=== PATIENT | male | born 1940 | race Caucasian/White ===

== ENCOUNTER 2020-02-09 10:13 | Outpatient (CLI) | payer MEDICARE, SELFPAY ==
--- NOTE | ~2020-02-09 | CT_ITS ---
EXAMINATION: CT lung screening EXAM DATE: 02/09/2020 10:36 INDICATION: Personal history of nicotine dependence. TECHNIQUE: Spiral low dose CT of the chest without contrast. Axial, coronal and sagittal images were reviewed. The dose-length product (DLP) for this examination was 126.87 mGy-cm. The exposure was t ailored according to patient size (auto mA exposure control), and iterative reconstruction (ASIR) was used as additional dose reduction technique. Comparison is made to prior examination from 05/06/2018. FINDINGS: There is an azygos fissure. There is mild to moderate emphysema. Left upper lobe calcified granuloma. No suspicious pulmonary nodules. Tracheobronchial tree is patent. There is no mediasti nal, hilar or axillary lymphadenopathy. There are no pleural or pericardial effusions. There is n o pneumothorax. Heart normal in size. There is mild to moderate coronary arterial calcification, arterial sclerosis. Several small calcified gallstones. There is mild to moderate thoracic spondylos is without osteoblastic or osteolytic lesions identified. IMPRESSION: Lung-RADS category 1, negative (<1%chance of malignancy); recommend continued LDCT screen ing in 1 year. Reviewed, dictated and finalized at location B. IMPRESSION: Lung-RADS category 1, negative (<1%chance of malignancy); recommend continued LDCT screening in 1 year.
== END 2020-02-09 10:14 | disposition home or self-care (01) ==
PROVIDERS: PCP Family Medicine; Visit Provider Nurse Practitioner Family
DX: Z12.2 Encounter for screening for malignant neoplasm of respiratory organs (principal); Z87.891 Personal history of nicotine dependence
CPT/HCPCS: G0297

== ENCOUNTER 2021-03-18 08:59 | Outpatient (CLI) | payer MEDICARE, SELFPAY ==
--- NOTE | ~2021-03-18 | CT_ITS ---
EXAMINATION: CT lung screening DATE: 03/18/2021 09:19 INDICATION: Personal history of nicotine dependence TECHNIQUE: Computed tomography (CT) of the chest was performed without intravenous contrast. The dose -length product was 99.14 mGy-cm. Automated exposure control and iterative reconstruction technique w ere employed. COMPARISON: CT dated 02/09/2020 FINDINGS: Heart size is normal. No thoracic lymphadenopathy. There is atherosclerosis of the aorta an d coronary arteries. No significant pleural or pericardial effusion. There are gallstones. There is a 3 mm right upper lobe nodule new since prior study. Calcified granulomas in the left upper lobe. Sta ble pleural-based left upper lobe nodule measuring 5 mm, image 38. Stable 5 mm pleural-based nodule l eft upper lobe, image 44. No endobronchial lesions. There is an azygos fissure. There is mild emphyse ma. IMPRESSION: 1. Lung-RADS category 2: Benign appearance or behavior. Continue annual screening with noncontrast lo w-dose chest CT in 12 months. Reviewed, dictated and finalized at location A. IMPRESSION: 1. Lung-RADS category 2: Benign appearance or behavior. Continue annual screeni ng with noncontrast low-dose chest CT in 12 months.
== END 2021-03-18 09:00 | disposition home or self-care (01) ==
PROVIDERS: PCP Family Medicine; Visit Provider Nurse Practitioner Family
DX: Z87.891 Personal history of nicotine dependence (principal)
CPT/HCPCS: 71271

== ENCOUNTER 2022-03-20 09:16 | Outpatient (CLI) | payer MEDICARE, SELFPAY ==
--- NOTE | ~2022-03-20 | CT_ITS ---
EXAMINATION:CT diagnostic chest wo con DATE: 03/20/2022 09:38 INDICATION: Lung nodule. TECHNIQUE: Computed tomography (CT) of the chest was performed without intravenous contrast. Automate d exposure control and iterative reconstruction technique were employed. The dose-length product (DLP ) was 109.57 mGy-cm. COMPARISON: Chest CT 03/18/2021 FINDINGS: There is mild scarring at the lung apices. There is mild emphysema. Calcified left lung nod ules and calcified left hilar and mediastinal lymph nodes are consistent with old granulomatous disea se. There is mild atelectasis bilaterally. There are stable pleural-based nodules in left upper lobe measuring up to 5 mm. There is mild scarring in the paraspinal lower lobes. No pleural effusion. The heart size is normal. There are coronary artery calcifications. No pericardial effusion. There are ga llstones in the gallbladder, which is normal in size. There is cortical thinning of the kidneys. Ther e is mild thoracic spondylosis and severe lumbar spondylosis. There is mild chronic height loss of mu ltiple vertebral bodies. IMPRESSION: 1. Lung-RADS category 2: Benign appearance or behavior. Reviewed, dictated and finalized at location A.
== END 2022-03-20 09:17 | disposition home or self-care (01) ==
PROVIDERS: PCP Family Medicine; Visit Provider Nurse Practitioner Family
DX: R91.1 Solitary pulmonary nodule (principal)
CPT/HCPCS: 71250